=== PATIENT | male | born 1995 ===

== ENCOUNTER 2024-10-27 07:27 | Emergency (ER) | payer OTHER, SELFPAY ==
[2024-10-27 07:30] VITALS: BP 114/76; PULSE 71; RESP 18; TEMP 35.8; O2SAT 97; BMI 24.4
--- NOTE | 2024-10-27 08:30 | ED_ITS ---
HPI - Wound/Laceration General Chief Complaint: Wound/Laceration Stated Complaint: left index finger cut off tip Time Seen by Provider: 10/27/24 07:59 Source: patient Mode of arrival: ambulatory Limitations: no limitations History of Present Illness HPI narrative: This is a 29 years old left-handed man presented to the ED with a chief complaint of laceration of the left index finger, he got accidentally left index finger at home preparing food Onset (ago): hour(s) (1) Place: home Context: accidental Associated symptoms: none Related Data Allergies Allergy/AdvReac Type Severity Reaction Status Date / Time Latex, Natural Rubber Allergy Rash Verified 10/27/24 07:32 Review of Systems 2 Review of Systems: Yes all other systems are reviewed and are negative PMFSH Social History Social History Advance Directives: No Advance Directives Information Provided: Yes Physical Exam 2 Vital Signs: Vital Signs: Last Vital Signs Temp 96.5 F L 10/27/24 09:50 Pulse 71 10/27/24 09:50 Resp 18 10/27/24 09:50 BP 114/76 10/27/24 09:50 Pulse Ox 97 10/27/24 09:50 O2 Del Method Room Air 10/27/24 09:50 BMI result Body Mass Index 24.4 HEENT: Head: Yes normal to inspection Mouth: Normal oral and palatal mucosa present Neck: Neck: Yes normal visual inspection and Yes full ROM Chest: Chest palpation & inspection: normal inspection of the chest Resp: Effort & Inspection: normal respiratory effort Cardio: Jugular venous distension: no JVD Rate: regular rate Rhythm: r egular rhythm GI: Inspection: Yes normal to inspection Extrem: Other: Examination of the left index finger showed a superficial laceration 1.5 cm in the tip of the finger full range of motion see picture, flap like laceration General: Yes normal to inspection Medications Administered Discontinued Medications Generic Name Dose Route Start Last Admin Trade Name Freq PRN Reason Stop Dose Admin Diphtheria/Tetanus/Acell Pertussis 0.5 ml 10/27/24 08:41 10/27/24 08:54 Diphth,Pertus(Acell),Tet Adult 0.5 Ml Syringe IM 10/27/24 08:42 0.5 ml .ONCE ONE Administration Medical Decision Making Medical Decision Making MDM Narrative: Patient here with a laceration of the fingertip flap-like I think it is reasonable to apply Dermabond Differential Diagnosis Differential Diagnoses: The differential diagnosis associated with the presentation includes Laceration/ finger fx Procedures Laceration Laceration 1: Site: other (left index) Side (If applicable): left Size (cm): 1.5 Description: linear Depth: simple, single layer Pre-repair: irrigated extensively Skin layer closed with: other (exofin (skin adesive)) Discharge Plan Discharge Clinical Impression: Laceration Patient Disposition: Home, Self-Care Instructions: Laceration (DC) Additional Instructions: Follow-up with your primary care physician return to the emergency room if you worse keep your finger dry Stand Alone Forms: Work/School Release Interventions: ED Discharge Assessment Last Done: 10/27/24 09:50 Discharge Date/Time: 10/27/24 09:51 Print Language: Polish
[2024-10-27] MEDS: Diphth,Pertus(ACell),Tet Adult 0.5 ML SYRINGE IM (08:54)
[2024-10-27 09:50] VITALS: BP 114/76; PULSE 71; RESP 18; TEMP 35.8; O2SAT 97
== END 2024-10-27 09:51 | disposition home or self-care (01) ==
PROVIDERS: Emergency Provider Emergency Medicine
DX: S61.211A Laceration without foreign body of left index finger without damage to nail, initial encounter (principal); M79.642 Pain in left hand; W26.0XXA Contact with knife, initial encounter; Y93.9 Activity, unspecified; Y92.9 Unspecified place or not applicable; Y99.8 Other external cause status; Z23 Encounter for immunization
CPT/HCPCS: 12001; 90471; 90715; 99282; 99284